=== PATIENT | female | born 1990 | race Caucasian/White ===

== ENCOUNTER 2018-04-12 10:41 | Emergency (ER) | payer MEDICAID, OTHER ==
[2018-04-12] MEDS ORDERED: Sodium Chloride 0.9% 10 ML Syringe FLUSH PRN (11:07)
[2018-04-12] MEDS ORDERED: Ondansetron 4 MG/2 ML SDV IVPUSH ONE (11:07)
[2018-04-12] MEDS ORDERED: Sodium Chloride 0.9% 1,000 ML IV STA (11:07)
[2018-04-12] MEDS ORDERED: HYDROmorphone 0.5 MG/0.5 ML SYRINGE IVPUSH ONE ×3 (11:09→14:20)
--- NOTE | 2018-04-12 13:41 | US ---
Pelvic ultrasound: Multiple real-time images were obtained transvaginally. Left ovary identified and appears without cyst or solid abnormality. Left ovary measures 2.1 x 1.1 x 1.2 cm. Right ovary not seen with history of prior right oophorectomy. Uterus also not seen compatible with previous hysterectomy. No free fluid is seen within the pelvis. Impression: 1. Previous right oophorectomy and prior hysterectomy. 2. Left ovary appears within normal limits. Diagnostic code #2
--- NOTE | 2018-04-12 14:25 | EDM.PDOC ---
ED HPI GENERAL MEDICAL PROBLEM - General Chief Complaint: [employer]ING [employer]ST[employer]ER Problem Stated Complaint: VAGINAL BLEEDING Time Seen by Provider: 04/12/18 10:52 Source of Information: Reports: Patient History Limitations: Reports: No Limitations - History of Present Illness INITIAL COMMENTS - FREE TEXT/NARRATIVE: The patient presents with pelvic pain and vaginal bleeding. This started just prior to arrival. She was at the alf doing some training. She just had a hysterectomy in November. She had no problems since then. She had intercourse maybe a week ago. She did not lift anything heavy. She has no fever, chills, cough, nausea, vomiting chest pain or shortness of breath. She has no dysuria. Onset: Sudden Duration: Minutes: Location: Reports: Pelvis Quality: Reports: Sharp Severity: Severe Improves with: Reports: None Worsens with: Reports: None Associated Symptoms: Reports: No Other Symptoms Lower Abdominal Pain Score (Numeric/FACES): 10 - Related Data Allergies Allergy/AdvReac Type Severity Reaction Status Date / Time morphine Allergy Anaphylactic Verified 04/12/18 10:51 Shock Home Meds: Home Meds Albuterol Sulfate [Proair Hfa] 8.5 gm IH Q4H PRN 04/12/18 [History] EPINEPHrine [Epipen] 0.3 mg IM ASDIRECTED PRN 04/12/18 [History] Montelukast [Singulair] 10 mg PO DAILY 04/12/18 [History] Multivitamin [Multivitamins] 1 each PO DAILY 04/12/18 [History] Omeprazole 20 mg PO DAILY 04/12/18 [History] oxyCODONE HCl/Acetaminophen [Percocet 5-325 mg Tablet] 1 - 2 each PO Q6HR PRN # 20 tablet 04/12/18 [Rx] Past Medical History HEENT History: Reports: Allergic Rhinitis Respiratory History: Reports: Asthma Gastrointestinal History: Reports: GERD - Past Surgical History HEENT Surgical History: Reports: Myringotomy w Tube(s) Female Surgical History: Reports: Hysterectomy, Tubal Ligation Musculoskeletal Surgical History: Reports: Arthroscopic Knee, ORIF Social & Family History - Tobacco Use Smoking Status *Q: Current Every Day Smoker Years of Tobacco use: 18 Packs/Tins Daily: 0.2 - Caffeine Use Caffeine Use: Reports: Coffee - Recreational Drug Use Recreational Drug Use: No ED ROS GENERAL - Review of Systems Review Of Systems: See Below Constitutional: Reports: No Symptoms HEENT: Reports: No Symptoms Respiratory: Reports: No Symptoms Cardiovascular: Reports: No Symptoms Endocrine: Reports: No Symptoms GI/Abdominal: Reports: Abdominal Pain : Reports: Other (Pelvic pain and vaginal bleeding) ED EXAM, RENAL/ - Physical Exam Exam: See Below Exam Limited By: No Limitations General Appearance: Alert, Mild Distress Ears: Normal External Exam Nose: Normal Inspection Head: Atraumatic, Normocephalic Neck: Normal Inspection Respiratory/Chest: No Respiratory Distress, Lungs Clear, Normal Breath Sounds Cardiovascular: Regular Rate, Rhythm, No Edema, No Murmur GI/Abdominal: Soft, No Organomegaly, No Mass, Tender (Moderate tenderness to the lower abdomen) (Female) Exam: Normal External Exam, Other (Abrasion to the left upper vaginal vault. No areas of dehisense seen) Course - Vital Signs Last Recorded V/S: Last Vital Signs Temp 97.5 F 04/12/18 10:47 Pulse 98 04/12/18 10:47 Resp 16 04/12/18 10:47 BP 128/85 04/12/18 10:47 Pulse Ox 100 04/12/18 10:47 - Orders/Labs/Meds Orders: Active Orders 24 hr Category Date Time Status Pelvic Exam, Set Up [RC] ASDIRECTED Care 04/12/18 11:55 Active Peripheral IV Care [RC] . DIRECTED Care 04/12/18 11:08 Active UA W/MICROSCOPIC [URIN] Stat Lab 04/12/18 12:07 Ordered HYDROmorphone [Dilaudid] Med 04/12/18 14:20 Once 0.5 mg IVPUSH ONETIME ONE Sodium Chloride 0.9% [Saline Flush] Med 04/12/18 11:07 Active 10 ml FLUSH ASDIRECTED PRN ED Antiemetic Medication Reflex [OM.PC] Stat Oth 04/12/18 11:08 Ordered Peripheral IV Insertion Adult [OM.PC] Stat Oth 04/12/18 11:07 Ordered Medication Orders Sodium Chloride (Saline Flush) 10 ml FLUSH ASDIRECTED PRN PRN Reason: Keep Vein Open Last Admin: 04/12/18 11:25 Dose: 10 ml Labs: Laboratory Tests 04/12/18 04/12/18 04/12/18 Range/Units 11:15 11:15 11:15 WBC 12.37 H (3.98-10.04) K/mm3 RBC 4.76 (3.98-5.22) M/mm3 Hgb 14.1 (11.2-15.7) gm/L Hct 41.9 (34.1-44.9) % MCV 88.0 (79.4-94.8) fl MCH 29.6 (25.6-32.2) pg MCHC 33.7 (32.2-35.5) g/dl RDW Std Deviation 39.8 (36.4-46.3) fL Plt Count 318 (182-369) K/mm3 MPV 9.9 (9.4-12.3) fl Neut % (Auto) 59.7 (34.0-71.1) % Lymph % (Auto) 30.2 (19.3-51.7) % [place] % (Auto) 6.9 (4.7-12.5) % Eos % (Auto) 2.7 (0.7-5.8) Baso % (Auto) 0.2 (0.1-1.2) % Neut # (Auto) 7.38 H (1.56-6.13) K/mm3 Lymph # (Auto) 3.74 (1.18-3.74) K/mm3 [place] # (Auto) 0.85 H (0.24-0.36) K/mm3 Eos # (Auto) 0.33 (0.04-0.36) K/mm3 Baso # (Auto) 0.03 (0.01-0.08) K/mm3 Sodium 139 (136-145) mEq/L Potassium 3.9 (3.5-5.1) mEq/L Chloride 105 (98-107) mEq/L Carbon Dioxide 24 (21-32) mEq/L Anion Gap 13.9 (5-15) BUN 15 (7-18) mg/dL Creatinine 0.8 (0.55-1.02) mg/dL Est Cr Clr Drug Dosing 108.44 mL/min Estimated GFR (MDRD) > 60 (>60) mL/min BUN/Creatinine Ratio 18.8 H (14-18) Glucose 91 (74-106) mg/dL Calcium 9.4 (8.5-10.1) mg/dL Total Bilirubin 0.4 (0.2-1.0) mg/dL AST 14 L (15-37) U/L ALT 20 (14-59) U/L Alkaline Phosphatase 70 (46-116) U/L Total Protein 7.7 (6.4-8.2) g/dl Albumin 4.0 (3.4-5.0) g/dl Globulin 3.7 gm/dL Albumin/Globulin Ratio 1.1 (1-2) Lipase 131 (73-393) U/L HCG, Qual Negative (NEGATIVE) Urine Color (Yellow) Urine Appearance (Clear) Urine pH (5.0-8.0) Ur Specific [place] (1.005-1.030) Urine Protein (Negative) Urine Glucose (UA) (Negative) Urine Ketones (Negative) Urine Occult Blood (Negative) Urine Nitrite (Negative) Urine Bilirubin (Negative) Urine Urobilinogen (0.2-1.0) Ur Leukocyte Esterase (Negative) Urine RBC (0-5) /hpf Urine WBC (0-5) /hpf Ur Epithelial Cells (0-5) /hpf Urine Bacteria (FEW) /hpf Urine Mucus (FEW) /hpf 04/12/18 Range/Units 12:07 WBC (3.98-10.04) K/mm3 RBC (3.98-5.22) M/mm3 Hgb (11.2-15.7) gm/L Hct (34.1-44.9) % MCV (79.4-94.8) fl MCH (25.6-32.2) pg MCHC (32.2-35.5) g/dl RDW Std Deviation (36.4-46.3) fL Plt Count (182-369) K/mm3 MPV (9.4-12.3) fl Neut % (Auto) (34.0-71.1) % Lymph % (Auto) (19.3-51.7) % [place] % (Auto) (4.7-12.5) % Eos % (Auto) (0.7-5.8) Baso % (Auto) (0.1-1.2) % Neut # (Auto) (1.56-6.13) K/mm3 Lymph # (Auto) (1.18-3.74) K/mm3 [place] # (Auto) (0.24-0.36) K/mm3 Eos # (Auto) (0.04-0.36) K/mm3 Baso # (Auto) (0.01-0.08) K/mm3 Sodium (136-145) mEq/L Potassium (3.5-5.1) mEq/L Chloride (98-107) mEq/L Carbon Dioxide (21-32) mEq/L Anion Gap (5-15) BUN (7-18) mg/dL Creatinine (0.55-1.02) mg/dL Est Cr Clr Drug Dosing mL/min Estimated GFR (MDRD) (>60) mL/min BUN/Creatinine Ratio (14-18) Glucose (74-106) mg/dL Calcium (8.5-10.1) mg/dL Total Bilirubin (0.2-1.0) mg/dL AST (15-37) U/L ALT (14-59) U/L Alkaline Phosphatase (46-116) U/L Total Protein (6.4-8.2) g/dl Albumin (3.4-5.0) g/dl Globulin gm/dL Albumin/Globulin Ratio (1-2) Lipase (73-393) U/L HCG, Qual (NEGATIVE) Urine Color Yellow (Yellow) Urine Appearance Slt cloudy H (Clear) Urine pH 6.5 (5.0-8.0) Ur Specific [place] 1.025 (1.005-1.030) Urine Protein Negative (Negative) Urine Glucose (UA) Negative (Negative) Urine Ketones Negative (Negative) Urine Occult Blood 3+ H (Negative) Urine Nitrite Negative (Negative) Urine Bilirubin Negative (Negative) Urine Urobilinogen 0.2 (0.2-1.0) Ur Leukocyte Esterase Trace H (Negative) Urine RBC 0-5 (0-5) /hpf Urine WBC 0-5 (0-5) /hpf Ur Epithelial Cells 5-10 H (0-5) /hpf Urine Bacteria Few (FEW) /hpf Urine Mucus Not seen (FEW) /hpf Meds: Medications Generic Name Dose Route Start Last Admin Trade Name Freq PRN Reason Stop Dose Admin Sodium Chloride 10 ml 04/12/18 11:07 04/12/18 11:25 Saline Flush FLUSH 10 ml ASDIRECTED PRN Administration Keep Vein Open Discontinued Medications Generic Name Dose Route Start Last Admin Trade Name Freq PRN Reason Stop Dose Admin Hydromorphone HCl 1 mg 04/12/18 11:09 04/12/18 11:23 Dilaudid IVPUSH 04/12/18 11:10 1 mg ONETIME ONE Administration Hydromorphone HCl 0.5 mg 04/12/18 13:01 04/12/18 13:13 Dilaudid IVPUSH 04/12/18 13:02 0.5 mg ONETIME ONE Administration Sodium Chloride 1,000 mls @ 1,000 mls/hr 04/12/18 11:07 04/12/18 11:22 Normal Saline IV 04/12/18 12:06 1,000 mls/hr .BOLUS STA Administration Ondansetron HCl 4 mg 04/12/18 11:07 04/12/18 11:22 Zofran IVPUSH 04/12/18 11:08 4 mg ONETIME ONE Administration - Re-Assessments/Exams Free Text/Narrative Re-Assessment/Exam: 04/12/18 14:25 I ordered an IV NS 1L bolus, dilaudid 1mg IV, labs and an US. Her WBC was slightly elevated. Her Hgb looks good. Her CMP looks good. Her UA shows no UTI. Her US shows previous right oophorectomy and prior hysterectomy. She still had pain after each exam so I gave her something more for pain. 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 He wanted to see her in follow up. I will give her something for pain. Departure - Departure Time of Disposition: 14:30 Disposition: Home, Self-Care 01 Condition: Good Clinical Impression: Vaginal bleeding, Pelvic pain - Discharge Information Prescriptions: oxyCODONE HCl/Acetaminophen [Percocet 5-325 mg Tablet] 1 - 2 each PO Q6HR PRN # 20 tablet PRN Reason: Pain Referrals: PCP,Not In Area [Primary Care Provider] - Additional Instructions: Pelvic rest until you see your doctor. No intercourse or heavy lifting. Take the percocet as needed for pain. Call your doctor's office right away and make a follow up appointment. Please return if you are worse. - My Orders Last 24 Hours: My Active Orders 04/12/18 11:07 Sodium Chloride 0.9% [Saline Flush] 10 ml FLUSH ASDIRECTED PRN Peripheral IV Insertion Adult [OM.PC] Stat 04/12/18 11:08 Peripheral IV Care [RC] . DIRECTED ED Antiemetic Medication Reflex [OM.PC] Stat 04/12/18 11:55 Pelvic Exam, Set Up [RC] ASDIRECTED 04/12/18 12:07 UA W/MICROSCOPIC [URIN] Stat 04/12/18 14:20 HYDROmorphone [Dilaudid] 0.5 mg IVPUSH ONETIME ONE - Assessment/Plan Last 24 Hours: My Active Orders 04/12/18 11:07 Sodium Chloride 0.9% [Saline Flush] 10 ml FLUSH ASDIRECTED PRN Peripheral IV Insertion Adult [OM.PC] Stat 04/12/18 11:08 Peripheral IV Care [RC] . DIRECTED ED Antiemetic Medication Reflex [OM.PC] Stat 04/12/18 11:55 Pelvic Exam, Set Up [RC] ASDIRECTED 04/12/18 12:07 UA W/MICROSCOPIC [URIN] Stat 04/12/18 14:20 HYDROmorphone [Dilaudid] 0.5 mg IVPUSH ONETIME ONE
== END 2018-04-12 14:55 | disposition home or self-care (01) ==
LOC: JD.ED 10:41
DX: N93.9 Abnormal uterine and vaginal bleeding, unspecified (principal); S30.814A Abrasion of vagina and vulva, initial encounter; F17.210 Nicotine dependence, cigarettes, uncomplicated; K21.9 Gastro-esophageal reflux disease without esophagitis; Z88.5 Allergy status to narcotic agent; Z79.899 Other long term (current) drug therapy; X58.XXXA Exposure to other specified factors, initial encounter
CPT/HCPCS: 36415; 76830; 80053; 81001; 83690; 84703; 85025; 96361; 96374; 96375; 96376; 99284; J1170; J2405; J7040; J7050